=== PATIENT | male | born 1940 | race Caucasian/White ===

== ENCOUNTER → 2020-06-21 14:33 | Outpatient (CLI) | payer MEDICARE, BC | END | disposition home or self-care (01) | LOC: D.MRI 14:33 | PROVIDERS: ATTEND Orthopaedic Surgery | DX: R22.9 Localized swelling, mass and lump, unspecified (principal) ==

== ENCOUNTER 2020-06-30 09:40 | Day surgery (SDC) | payer MEDICARE, BC ==
[2020-06-27 12:43] LABS: HEMATOCRIT 45.5 % (42.0-54.0); HEMOGLOBIN 14.9 g/dL (13.5-17.5); MCH 29.6 pg (26.0-34.0); MCHC 32.7 g/dL (31.0-37.0); MCV 90.3 fL (80.0-100.0); MEAN PLATELET VOLUME 9.9 fL (7.4-10.4); RBC 5.04 10x6/uL (4.20-6.10); RDW 12.9 % (11.5-14.5); WBC 5.1 10x3/uL (4.8-10.8)
[~2020-06-30] VITALS: Ht 167.6 cm; Wt 74.8 kg
[~2020-06-30 09:40] MED LIST: GEMFIBROZIL600 MG; HYTRIN10 MG PO; LISINOPRIL20 MG PO
[2020-06-30 12:53] VITALS: BP 144/78; Ht 167.6 cm; Wt 74.8 kg
--- NOTE | 2020-06-30 17:37 | NUR ---
1630 IV REMOVED AND PRESSURE HELD
--- NOTE | 2020-07-01 10:46 | OP ---
PATIENT NAME: TIGRE CORTEZ MEDICAL RECORD: [id number] :42 LOCATION:[facility] ADMISSION DATE: SURGEON: MICHOACANO SIM DO DATE OF OPERATION: 06/30/2020 PROCEDURE PERFORMED: Left upper arm mass excision and left thumb trigger or A1 clif release. PREOPERATIVE DIAGNOSES: Left trigger thumb and left upper arm mass. POSTOPERATIVE DIAGNOSES: Left trigger thumb and left upper arm mass. INDICATIONS: Mr. Cortez is a 79-year-old male who has had left trigger thumb and left upper arm mass for quite some time. We tried injections on the trigger thumb with no avail and he also had a mass. 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 I informed him of the risks including recurrence of the lipoma, damage to nerves and vessels in the area as well as at a trigger thumb site, infection, bleeding, and he signed the consent. SURGEON: Michoacano Sim DO PROCEDURE: The patient was taken to the operative suite, laid in supine position, given general anesthetic, 2 grams Ancef and LMA was placed. The left upper extremity was then prepped and draped in sterile fashion. A timeout was performed; everyone was in agreement with the correct side, site, patient and procedure. I then put a sterile forearm tourniquet on and exsanguinated the left upper extremity, tourniquet was inflated to 250 mmHg, was up for 6 minutes and then made an incision over the A1 clif of the thumb. Blunt dissection with Ragnell down to and then released it with a 15 blade scalpel, then pulled out the flexor tendon and inspected it for any tears and not seen any, but saw that was worn some. I ranged the thumb, it did not catch or click. I then put the tourniquet down and dressed the lipoma on the upper arm, the tourniquet was also removed. I then made incision over the lipoma. It was approximately 6 cm x 5 cm by dimension. A longitudinal incision was made over it and I carefully dissected it out and placed a specimen cup and sent to the lab. I then closed the trigger thumb site with 4-0 nylon in horizontal mattress fashion. Sejal Wilson, certified surgical first aid officer closed the lipoma site with 3-0 Vicryl in inverted interrupted fashion and 4-0 Monocryl ran on the skin. We then placed an Adaptic, 4 x 4's, cast padding, and Sang wrap from the hand up to the arm and he was awakened and taken to recovery in stable condition. Trigger thumb site was injected with approximately 4 mL of 0.25% Marcaine with epinephrine and the lipoma site with 10 mL of 0.25% Marcaine with epinephrine. After dressing, he was awakened and taken to recovery in stable condition. ESTIMATED BLOOD LOSS: Minimal. COMPLICATIONS: None. TRANSINT:[id number] Voice Confirmation ID: [id number] DOCUMENT ID: [id number] OPERATIVE REPORT [id number] TIGRE CORTEZ MICHAEL D, DO at 1046 CC: [id number] DICTATION DATE: 06/30/20 1521 ENGINEER BYPRODUCT: 07/01/20 0250 [facility] 06/30/20 [id number] [place] [address]
== END 2020-06-30 17:15 | disposition home or self-care (01) ==
LOC: D.OPS 09:40 → D.PAN 14:30 → D.OPS 14:30
PROVIDERS: Anesthesiology; ATTEND Orthopaedic Surgery
DX: M65.312 Trigger thumb, left thumb (principal); D17.22 Benign lipomatous neoplasm of skin and subcutaneous tissue of left arm; I10 Essential (primary) hypertension; E78.2 Mixed hyperlipidemia